=== PATIENT | female | born 1935 | race African-American/Black ===

== ENCOUNTER 2017-04-24 05:41 | Day surgery (SDC) | payer MEDICARE ==
[2017-04-23 15:53] VITALS: BMI 28.3
[~2017-04-24 05:41] MED LIST: Cyclopentolate 1% Opth Drop 2 ML BOT FS SCH; EPINEPHrine 0.3 MG, Dextrose 50% 3 ML in Ophthalmic Irrigation Solution 500 ML FS SCH; Phenylephrine 2.5% Ophth Soln 5 ML BOT FS SCH
[2017-04-24] MEDS ORDERED: Midazolam HCl 2 mg/2 ml Vial ONE (06:13)
[2017-04-24] MEDS ORDERED: Diprivan 20 ML ONE (06:13)
[2017-04-24] MEDS ORDERED: Fentanyl 100 MCG/2 ML VIAL ONE (06:13)
[2017-04-24] MEDS ORDERED: Cyclopentolate 1% Opth Drop 2 ML BOT ONE (06:14)
[2017-04-24] MEDS ORDERED: Phenylephrine 2.5% Ophth Soln 5 ML BOT ONE (06:14)
--- NOTE | 2017-04-24 08:20 | OP ---
DATE OF PROCEDURE: 04/24/2017 PREOPERATIVE DIAGNOSIS: Vitreous hemorrhage, left eye. POSTOPERATIVE DIAGNOSIS: Vitreous hemorrhage, left eye. PROCEDURE: Pars plana vitrectomy and membrane peel, left eye. SURGEON: Dr. Rakan Vazquez ANESTHESIA: Local with monitored anesthesia care. COMPLICATIONS: None. PROCEDURE IN DETAIL: The patient was identified in the preoperative holding area. Appropriate infor med consent for the planned surgical procedure on the left eye had been obtained. The patient was tr ansported to the operative suite where appropriate cardiopulmonary monitoring was established. Local anesthesia was obtained using retrobulbar and modified Van Lint lid block using 50/50 mixture of 4% lidocaine and 0.75% bupivacaine. The patient was prepped and draped in the usual sterile manner for ophthalmic surgery on the left eye. Lid speculum was placed in the left eye. The 25-gauge trocars w ere placed in conjunctiva and sclera supratemporally, inferotemporally, and supranasally. Infusion l ine was placed inferotemporally. Light pipe and vitreous cutter were inserted into the eye. Core of vitrectomy was performed. Dense vitreous hemorrhage was cleared. The posterior hyaloid face was al ready noted to be elevated. 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 These were unable to be d isplaced by direct pressure with a brushed cannula. Laser was placed on top of the area of the old S RN BM and prophylactic laser was placed behind the sclerotomy sites. Trocars were removed and the ey e was noted to retain pressure well. Retrobulbar Kenalog and subconjunctival Ancef were placed. Atr opine and antibiotic ointment were placed, and the eye was patched and shielded. The patient was ollie en to the postoperative recovery unit in good condition having suffered no immediate perioperative co mplications. DISCHARGE INSTRUCTIONS: The patient was instructed to keep patch and shield on, avoid lifting or gaurang ding, and follow up in the morning with Dr. Vazquez.
[2017-04-24] MEDS ORDERED: Lidocaine 1% PF 5 ML VIAL ONE (13:06)
[2017-04-24] MEDS ORDERED: Propofol 200 MG/20 ML VIAL ONE (13:06)
== END 2017-04-24 08:28 | disposition home or self-care (01) ==
LOC: SDC 05:41
PROVIDERS: ATTEND Ophthalmology Retina Specialist
PROC: 08T53ZZ Resection of Left Vitreous, Percutaneous Approach (ICD-10-PCS; principal; 2017-04-24)
PROC: 08NF3ZZ Release Left Retina, Percutaneous Approach (ICD-10-PCS; 2017-04-24)
DX: H43.312 Vitreous membranes and strands, left eye (principal); I10 Essential (primary) hypertension; E78.5 Hyperlipidemia, unspecified; E11.9 Type 2 diabetes mellitus without complications; Z79.82 Long term (current) use of aspirin; Z79.4 Long term (current) use of insulin; Z79.899 Other long term (current) drug therapy; Z85.3 Personal history of malignant neoplasm of breast; Z88.0 Allergy status to penicillin; Z90.49 Acquired absence of other specified parts of digestive tract; Z90.13 Acquired absence of bilateral breasts and nipples; Z98.891 History of uterine scar from previous surgery
CPT/HCPCS: J0171; J2250; J2704; J3010